=== PATIENT | male | born 1995 | race Caucasian/White ===

== ENCOUNTER 2017-06-12 03:26 | Emergency (ER) | payer OTHER, MEDICAID ==
[2017-06-12] MEDS ORDERED: ACETAMINOPHEN 500 MG TAB (04:55)
[2017-06-12] MEDS: KETOROLAC 60 MG INJ IM (04:57)
[2017-06-12] MEDS: ACETAMINOPHEN 500 MG TAB PO (04:57)
== END 2017-06-12 05:15 | disposition home or self-care (01) ==
LOC: FTE 03:26
DX: J02.9 Acute pharyngitis, unspecified (principal); F17.210 Nicotine dependence, cigarettes, uncomplicated; R05 Cough; R09.81 Nasal congestion; R50.9 Fever, unspecified
CPT/HCPCS: 96372; 99284-25